=== PATIENT | female | born 1970 | race Caucasian/White ===

== ENCOUNTER 2016-08-02 17:25 | Emergency (ER) | payer BC ==
--- NOTE | 2016-08-02 17:59 | EDPHY ---
H & P Time Seen by Provider: 08/02/16 17:43 HPI/ROS: Chief complaint. Leg pain HPI. Patient 45-year-old female right calf ache and throbbing for 8-9 days since running a [employer] marathon. No swelling. No discrete injury. She has no chest discomfort or shortness of breath. Pain is in the posterior right calf. She has no history of DVT or PE ROS Constitutional. no fever/chills, no weakness Eyes. no problems with vision ENT. no sore throat, no nasal drainage Cardiovascular. no chest pain Respiratory. no shortness of breath, no cough Abdominal. no abdominal pain, no nausea/vomiting, no diarrhea . no problems urinating MS. Right calf pain without swelling Skin. no rash Lymph. no swollen glands Neuro. no headache, no dizziness, no difficulty walking or with speech Past Medical/Surgical History: Osteomyelitis Social History: , nonsmoker, no alcohol Smoking Status: Never smoked Physical Exam: General Appearance: Alert pleasant well-developed female mild distress vital signs stable Eyes: Pupils equal and round no pallor or injection. ENT, Mouth: Mucous membranes are moist. Respiratory: There are no retractions, lungs are clear to auscultation. Cardiovascular: Regular rate and rhythm. Gastrointestinal: Abdomen is soft and nontender, no masses, bowel sounds normal. Neurological: Awake and alert, sensory and motor exams grossly normal. Skin: Warm and dry, no rashes. Musculoskeletal: Neck is supple nontender. Extremities posterior right calf tenderness without obvious swelling or bruising Psychiatric: Patient is oriented X 3, there is no agitation. Constitutional: Initial Vital Signs Temperature (C) 36.8 C 08/02/16 17:33 Heart Rate 52 L 08/02/16 17:33 Respiratory Rate 17 08/02/16 17:33 Blood Pressure 116/79 08/02/16 17:33 O2 Sat (%) 99 08/02/16 17:33 O2 Delivery Mode Room Air Allergies/Adverse Reactions: Penicillins Allergy (Verified 08/02/16 17:33) Hives Home Medications: Medication Instructions Recorded NK [No Known Home Meds] 08/02/16 Medical Decision Making - Diagnostics Imaging Results: Ultrasound right lower extremity reviewed by me and discussed with Dr. Gavin is negative for DVT ED Course/Re-evaluation: Re-evaluation 6:30 p.m. patient is stable. She and I discussed imaging study results, treatment plan including criteria for return importance of follow-up and further evaluation. She expresses understanding and agreement Differential Diagnosis: I considered DVT, calf strain, muscle tear Departure - Departure Disposition: Home, Routine, Self-Care Clinical Impression: Strain of calf muscle Qualifiers: Encounter type: initial encounter Laterality: right Qualified Code(s): S86.811A - Strain of other muscle(s) and tendon(s) at lower leg level, right leg , initial encounter Condition: Good Instructions: Muscle Strain (ED) Additional Instructions: Tylenol or ibuprofen as needed for discomfort. Easy activity. Return for worsening symptoms. Recheck in 3-4 days if not improved Referrals: Junie Guevara MD [Primary Care Provider] - 3-4 days, if not improved
[2016-08-02 18:43] VITALS: BP 120/64; PULSE 54; RESP 20; TEMP 98.1; O2SAT 96
== END 2016-08-02 18:51 | disposition home or self-care (01) ==
DX: S86.811A Strain of other muscle(s) and tendon(s) at lower leg level, right leg, initial encounter (principal); X50.3XXA Overexertion from repetitive movements, initial encounter; Y99.8 Other external cause status; Y93.02 Activity, running